=== PATIENT | female | born 1985 | race Caucasian/White ===

== ENCOUNTER 2016-04-09 11:44 | Emergency (ER) | payer OTHER ==
[2016-04-09 11:53] VITALS: BP 110/74; PULSE 95; RESP 16; TEMP 97.9; O2SAT 96
--- NOTE | 2016-04-09 12:20 | UCPHY ---
H & P Time Seen by Provider: 04/09/16 11:57 Patient Type: New HPI/ROS: This patient has sinus pain in the right frontal sinus this worse when she bends forward. She has mild ear pressure bilaterally as well. Her symptoms been present for a little over a week but more prominent over the past couple days. She also describes occasional cough productive of brown sputum and she notes purulent discharge from her nose. She states the sinus pressure is 5/10 intensity. ROS: No high fevers or chills. No other constitutional symptoms. Neuro: No confusion. No neck stiffness. HEENT: No sore throat. No drainage from her ear. She does feel like her hearing is slightly diminished. No tinnitus pulmonary: No pleuritic pain or shortness of breath. 7 point ROS is otherwise negative. Past Medical/Surgical History: Otherwise healthy Smoking Status: Never smoked Physical Exam: Physical Exam Vital signs are normal. General: No acute distress HEENT: Nose: Swollen nasal mucosa right knee Nare with purulent discharge. She has sinus tenderness to percussion over the right frontal sinus. Ears: External canals clear bilaterally with bilateral effusions. No erythema Oropharynx: No erythema or exudates. No dysphonia. No drooling or stridor. Eyes: Pupils equal and react to light. Extraocular motions are intact. Lungs: Clear to auscultation bilaterally with no rales, rhonchi or wheeze. No respiratory distress. Cardiac: Regular rate and rhythm with no murmur gallop or rub Skin: No rash or pallor. Neuro: Alert with no focal deficits noted. Initial differential diagnosis: Viral versus bacterial sinusitis, serous otitis Constitutional: Initial Vital Signs Temperature (C) 36.6 C 04/09/16 11:50 Heart Rate 95 04/09/16 11:50 Respiratory Rate 16 04/09/16 11:50 Blood Pressure 110/74 04/09/16 11:50 O2 Sat (%) 96 04/09/16 11:50 O2 Delivery Mode Room Air Allergies/Adverse Reactions: No Known Allergies Allergy (Unverified 04/09/16 11:49) Home Medications: Medication Instructions Recorded Azithromycin [Zithromax] 250 mg PO DAILY #6 tab 04/09/16 Fluticasone Nasal [Flonase Nasal 2 sprays NASAL DAILY #1 mdi 04/09/16 Roggen] MDM/Departure - Depart Disposition: Home, Routine, Self-Care Clinical Impression: Cough Sinusitis Qualifiers: Sinusitis location: frontal Chronicity: acute Recurrence: non-recurrent Qualified Code(s): J01.10 - Acute frontal sinusitis, unspecified Condition: Good Instructions: Sinusitis (ED) Additional Instructions: Diagnosis: Sinusitis with cough Plan: Humidifier Flonase steroid nasal spray Ibuprofen for discomfort as needed Zithromax antibiotic Return for any significant worsening despite the treatment plan Prescriptions: Azithromycin [Zithromax] 250 mg PO DAILY #6 tab Fluticasone Nasal [Flonase Nasal Roggen] 2 sprays NASAL DAILY #1 mdi Referrals: NONE *PRIMARY CARE P,. [Primary Care Provider] - As per Instructions - PQRS PQRS Measurement: NA
== END 2016-04-09 12:25 | disposition home or self-care (01) ==
LOC: CED 11:44
DX: R05 Cough (principal); J01.10 Acute frontal sinusitis, unspecified
CPT/HCPCS: G0463-PO